=== PATIENT | male | born 1955 | race Caucasian/White ===

== ENCOUNTER 2023-04-11 13:01 | Outpatient (CLI) | payer MEDICARE | END 2023-04-11 13:02 | disposition home or self-care (01) | LOC: CSHCT 13:01 | PROVIDERS: ATTEND Internal Medicine | DX: C34.90 Malignant neoplasm of unspecified part of unspecified bronchus or lung (principal); N18.6 End stage renal disease; R59.0 Localized enlarged lymph nodes; R91.8 Other nonspecific abnormal finding of lung field | CPT/HCPCS: 71250; 74177 ==